=== PATIENT | female | born 1980 | race Caucasian/White ===

== ENCOUNTER → 2018-05-17 | Outpatient (REF) | payer OTHER ==
[2018-05-21 15:15] LABS: HPV HYBRID CAPTURE II Negative (Negative)
== END ==
LOC: M SFHCWAGY 14:29
DX: Z12.4 Encounter for screening for malignant neoplasm of cervix (principal)

== ENCOUNTER → 2022-07-17 | Outpatient (CLI) | payer BC, OTHER | LOC: M WHC 16:51 | PROVIDERS: ATTEND Internal Medicine | DX: Z12.31 Encounter for screening mammogram for malignant neoplasm of breast (principal) ==

== ENCOUNTER → 2023-05-23 | Outpatient (REF) | payer OTHER | LOC: M SFHCWAGY 13:16 | PROVIDERS: ATTEND Nurse Practitioner Family | DX: Z12.4 Encounter for screening for malignant neoplasm of cervix (principal) ==

== ENCOUNTER → 2023-07-18 | Outpatient (CLI) | payer OTHER | LOC: M WHC 15:44 | PROVIDERS: ATTEND Nurse Practitioner Family | DX: Z12.31 Encounter for screening mammogram for malignant neoplasm of breast (principal) ==

== ENCOUNTER → 2024-07-21 | Outpatient (CLI) | payer OTHER | LOC: M WHC 08:31 | PROVIDERS: ATTEND Nurse Practitioner Family | DX: Z12.31 Encounter for screening mammogram for malignant neoplasm of breast (principal) ==

== ENCOUNTER → 2024-07-21 | Outpatient (CLI) | payer OTHER ==
[2024-07-21 14:17] LABS: HEMOGLOBIN A1c 5.2 % (4.0-6.0)
[2024-07-21 14:32] LABS: FREE T4 1.25 NG/DL (0.89-1.76); PROGESTERONE 0.52 NG/ML; PROLACTIN 8.21 NG/ML
[2024-07-21 14:33] LABS: FOLLICLE STIMULATING HORMONE 128.9 mIU/ML; LUTEINIZING HORMONE 85.2 mIU/ML; THYROID STIMULATING HORMONE 2.124 uIU/ML (0.55-4.78)
[2024-07-21 14:34] LABS: ESTRADIOL 21.7 PG/ML
[2024-07-22 23:53] LABS: DEHYDROEPIANDROSTERONE SULFATE 162 mcg/dL (15-205)
== END ==
LOC: M PLALAB 09:32
PROVIDERS: ATTEND Nurse Practitioner Family
DX: N91.1 Secondary amenorrhea (principal)

== ENCOUNTER → 2024-08-25 | Outpatient (CLI) | payer OTHER | LOC: M WHC 09:33 | PROVIDERS: ATTEND Nurse Practitioner Family | DX: N91.1 Secondary amenorrhea (principal) ==